=== PATIENT | male | born 1940 | race Caucasian/White ===

== ENCOUNTER 2018-10-05 17:35 | Emergency (ER) | payer MEDICARE, OTHER ==
[~2018-10-05] VITALS: Ht 172.7 cm; Wt 81.6 kg
[~2018-10-05 17:35] MED LIST: ALLO300T28 PO; AMLO10TA4 PO; ASPI81EC98 PO; IBUP-81 PO; PANT40VI PO; SITA100T8 PO; TRAM50TA1 PO; ZOLP5TAB1 PO; [UNRECOGNIZED DRUG - CODE] PO
[2018-10-05 18:23] VITALS: BP 134/68
[2018-10-05] MEDS: ALBUTEROL SULFATE/IPRATROPIU 3 ML SOL IH ONE (19:40)
[2018-10-05] MEDS: KETOROLAC 30 MG/ML VIAL IM ONE (19:47)
[2018-10-05 21:46] VITALS: BP 123/66
== END 2018-10-05 21:20 | disposition home or self-care (01) ==
LOC: MED 17:35
DX: J20.9 Acute bronchitis, unspecified (principal); E11.9 Type 2 diabetes mellitus without complications; K21.9 Gastro-esophageal reflux disease without esophagitis; I10 Essential (primary) hypertension; Z79.82 Long term (current) use of aspirin; Z79.899 Other long term (current) drug therapy
CPT/HCPCS: 36415; 71045; 87804; 94640; 96372; 99284; J1885; J7620; Q0092

== ENCOUNTER 2018-10-23 22:28 | Inpatient (IN) | payer MEDICARE, OTHER ==
[~2018-10-23] VITALS: Ht 172.7 cm; Wt 81.2 kg
[2018-10-23 22:30] VITALS: BP 135/60
--- NOTE | 2018-10-23 22:30 | NUR ---
BIB son. Son states pt suddenly became diaphoretic and talking to self. Met pt in lobby and brought him back immediately to bed 1. Dr Nieto at bedside with w/c. Nickel size blistered red raised lesion above top lip just left of sagital line. Pt is moan in pain. Abd is distended with good bowel sounds. Lungs are clear bilat. Resp even and unlabored.
--- NOTE | 2018-10-23 22:35 | NUR ---
PT TAKEN TO BED 2 Addendum: 10/23/18 at 2243 by SUNDAR PT TAKEN TO BED 1
--- NOTE | 2018-10-23 22:46 | NUR ---
Dr. Nieto evaluating patient at bedside.
--- NOTE | 2018-10-23 22:58 | NUR ---
BLOOD DRAWN BY EDUCATION SUPERVISOR.
--- NOTE | 2018-10-23 23:02 | NUR ---
PORTABLE CXR DONE.
--- NOTE | 2018-10-23 23:08 | NUR ---
ABG DRAWN BY RT.
--- NOTE | 2018-10-23 23:10 | NUR ---
GAUGE 18 IV LINE ESTABLISHED TO THE LEFT FOREARM. NS 1 LITER BOLUS GIVEN ORDERED.
[2018-10-23 23:13] LABS: BASOPHILS # (AUTO) 0.1 K/uL (0.00-0.22); EOSINOPHILS # (AUTO) 0.2 K/uL (0-0.4); EOSINOPHILS % (AUTO) 3.4 % (0.0-4.0); HEMATOCRIT 38.2 % (36-52); HEMOGLOBIN 12.5 g/dL (12.0-18.0); LYMPHOCYTES % (AUTO) 31.6 % (20.5-51.1); MEAN CORPUSCULAR HEMOGLOBIN 28 pg (27-31); MEAN CORPUSCULAR HGB CONC 33 g/dL (33-37); MONOCYTES # (AUTO) 0.4 K/uL (0.8-1.0); MONOCYTES % (AUTO) 5.9 % (1.7-9.3); NEUTROPHILS # (AUTO) 3.6 K/uL (1.8-7.7); NEUTROPHILS % (AUTO) 58.1 % (42.2-75.2); PLATELET COUNT (AUTO) 285 K/uL (140-450); RED CELL DISTRIBUTION WIDTH 16.2 % (11.6-13.7); WHITE BLOOD COUNT (AUTO) 6.2 K/uL (4.8-10.8)
--- NOTE | 2018-10-23 23:14 | NUR ---
[id number].
--- NOTE | 2018-10-23 23:18 | NUR ---
12 LEAD EKG DONE.
[2018-10-23 23:23] LABS: CARBON DIOXIDE 21.5 mmol/L (21-32); CHLORIDE 107 mmol/L (98-107); CREATININE 1.4 mg/dL (0.7-1.3); GLUCOSE 183 mg/dL (74-106); POTASSIUM 3.5 mmol/L (3.5-5.1); SODIUM SERUM 139 mmol/L (136-145); UREA NITROGEN, BLOOD 18 mg/dL (7-18)
[2018-10-23 23:27] LABS: PROTHROMBIN TIME 10.1 secs (10.8-13.4)
[2018-10-23 23:29] LABS: ALBUMIN 3.5 g/dL (3.4-5.0); ASPARTATE AMINOTRANSFERASE 17 U/L (15-37); TOTAL BILIRUBIN 0.3 mg/dL (0.0-1.0)
[2018-10-23] MEDS ORDERED: NACL 0.9% 1,500 ML IV ONE (23:50)
[2018-10-24] MEDS ORDERED: PIPERACILLIN/TAZOBACTAM 3.375 GM in DEXTROSE 5% 50 ML IV ONE ×2
[2018-10-24] MEDS ORDERED: CLINDAMYCIN 900 MG in DEXTROSE 5% 100 ML IV ONE (00:05)
--- NOTE | 2018-10-24 00:14 | NUR ---
IN AND OUT CATHETERIZATION,URINE DIPSTICK DONE. RESULT NOTED BY MICAH. URINE SPECIMEN SENT TO THE LAB.
[2018-10-24 00:38] LABS: APPEARANCE,URINE HAZY (CLEAR); BILIRUBIN,URINE NEGATIVE (NEGATIVE); BLOOD, URINE 1+ (NEGATIVE); COLOR,URINE YELLOW (YELLOW); LEUKOCYTE ESTERASE ,URINE 3+ (NEGATIVE); NITRITE, URINE NEGATIVE (NEGATIVE); UGLUCOSE NEGATIVE (NEGATIVE)
[2018-10-24] MEDS ORDERED: CLINDAMYCIN 900 MG/6 ML VIAL IV ONE (00:44)
[2018-10-24] MEDS ORDERED: PIPERACILLIN/TAZOBACTAM 3.375 GM VIAL IV ONE (00:44)
[2018-10-24 00:45] LABS: RBC,URINE 0-5 (RARE) /HPF (0-5); WBC,URINE TOO MANY TO COUNT /HPF (0-5); YEAST,URINE Few /HPF (None Seen)
--- NOTE | 2018-10-24 00:45 | NUR ---
NS 1500 ML BOLUS STARTED. ZOSYN 3.375 GM IVPB ALSO GIVEN ORDERED.
[2018-10-24] MEDS ORDERED: ACETAMINOPHEN 325 MG TAB PO PRN (01:10)
--- NOTE | 2018-10-24 01:20 | NUR ---
CLINDAMYCIN 900 MG IVPB GIVEN ORDERED.
--- NOTE | 2018-10-24 02:24 | NUR ---
ADMITTED TO TELEMETRY UNIT FOR UROSEPSIS UNDER THE SERVICE OF VERBAL AND WRITTEN REPORT GIVEN TO BENSON BUTTS. PT. WENT TO ROOM 124-B. TRANSFER UNEVENTFUL.
--- NOTE | 2018-10-24 02:25 | NUR ---
ADMITTED A 78 Y/O MALE WITH C/C OF ALOC VIA [facility]. TRANSFERRED PATIENT FROM [facility] TO BED WITH 2 PERSON ASSIST.RESPIRATION EVEN AND UNLABORED. PATIENT RECEIVED WITH SOME CONFUSION, AAOX2, AND EXPLAINED PLAN OF CARE THROUGH [employer]. NO PERSONAL BELONGINGS DURING THE ADMISSION.MRSA NASAL SWAB DONE.SKIN INTACT.ADMISSION CARE DONE AND CARRY OUT ORDERS. FALL PRECAUTIONS APPLIED. CALL LIGHT WITHIN REACH. WILL CONTINUE TO MONITOR.
[2018-10-24] MEDS: NACL 0.9% 1,000 ML IV SCH ×5 (02:37→20:27)
[2018-10-24] MEDS ORDERED: cefTRIAXone 1,000 MG VIAL ONE (03:06)
[2018-10-24 04:00] VITALS: BP 136/52
--- NOTE | 2018-10-24 04:00 | NUR ---
V/S TAKEN AND RECORDED. NO PULMONARY DISTRESS NOTED AT THIS TIME. [address] FALL PRECAUTION APPLIED. CALL LIGHT WITHIN REACH. SEEN PATIENT RESTING COMFORTABLY IN BED. WILL CONTINUE TO MONITOR.
--- NOTE | 2018-10-24 05:00 | NUR ---
AM CARE DONE. PATIENT CHANGED AND REPOSITIONED. [address] NO S/S OF DISTRESS NOTED AT THIS TIME. ALL NEEDS ATTENDED. CALL LIGHT WITHIN REACH. WILL CONTINUE TO MONITOR.
--- NOTE | 2018-10-24 06:37 | NUR ---
PATIENT HAS BEEN SCREENED AND CATEGORIZED LOW NUTRITION RISK. PATIENT WILL BE SEEN WITHIN 7 DAYS OF ADMISSION. 10/30/18 ANNALISE PIPER MS, RDN
--- NOTE | 2018-10-24 07:15 | NUR ---
GAVE REPORT TO AM SHIFT RN AT BEDSIDE FOR CONTINUITY OF CARE. PATIENT IN STABLE CONDITION.
--- NOTE | 2018-10-24 07:16 | NUR ---
RECEIVED BEDSIDE REPORT FROM INSTALL AND REPAIR TECHNICIAN NURSE. PATIENT IS ALERT AND ORIENTEDX1. NO SIGNS OF DISTRESS ON RA. SKIN IS INTACT. PATIENT ON BEDREST, WEAKNESS. FALL RISK PROTOCOL IN PLACE. PATIENT IS INCONTINENT. TELE MONITOR IN PLACE. IV ON L FA 18G INFUSING NS AT 100. CLEAN, DRY AND INTACT. BED IN LOW POSITION. CALL LIGHT WITHIN REACH. WILL CONTINUE TO MONITOR
[2018-10-24 08:00] VITALS: BP 116/59
--- NOTE | 2018-10-24 08:30 | NUR ---
PATIENT WAS BEING FED BY GEOSPATIAL INFORMATION SCIENTIST. PATIENT CONTINUES TO COUGH AND CANNOT TOLERATED DIET. DR WALLACE MADE AWARE. HE SAID KEEP PATIENT NPO. GET SWALLOW EVAL AND GET CT SCAN OF ABD AND XRAY TO CHECK FOR ASPIRATION.
[2018-10-24] MEDS ORDERED: AZITHROMYCIN 250 MG TAB PO SCH (09:00)
[2018-10-24] MEDS ORDERED: ALBUTEROL 0.083% 2.5 MG/3 ML NEBU INH PRN (10:10)
[2018-10-24] MEDS: ENOXAPARIN 40 MG/0.4 ML SYR SUBQ SCH (10:37)
--- NOTE | 2018-10-24 10:39 | NUR ---
ADMINISTERED MED. PATIENT TOLERATED WELL. WILL CONTINUE TO MONITOR THE PATIENT
[2018-10-24 12:00] VITALS: BP 160/78
--- NOTE | 2018-10-24 12:00 | NUR ---
FAMILY AT BEDSIDE. PATIENT IN NO DISTRESS, SON TALKING TO DR WALLACE ON THE PHONE PER DR SHEETS REQUEST, WILL CONTINUE TO MONITOR.
[2018-10-24] MEDS: MORPHINE SULFATE 2 MG/ML SYR IVP PRN ×3 (13:37→22:14)
--- NOTE | 2018-10-24 13:37 | NUR ---
ADMINISTERED PRN PAIN MEDS. PATIENT TOLERATED WELL. WILL CONTINUE TO MONITOR THE PATIENT
[2018-10-24] MEDS: PIPER/TAZO 2.25GM/D5W PREMIX 50 ML IV SCH ×2 (13:38→20:27)
[2018-10-24] MEDS: ONDANSETRON 4 MG/2 ML VIAL IVP PRN (13:38)
--- NOTE | 2018-10-24 15:00 | NUR ---
PATIENT SITTING IN BED. NO SIGNS OF DISTRESS. WILL CONTINUE TO MONITOR THE PATIENT.
[2018-10-24 16:00] VITALS: BP 161/79
--- NOTE | 2018-10-24 17:16 | NUR ---
ADMINISTERED PRN PAIN MEDS. PATIENT TOLERATED WELL. WILL CONTINUE TO MONITOR THE PATIENT
--- NOTE | 2018-10-24 18:30 | NUR ---
PATIENT VERY CONFUSED TRYING TO GET OUT OF BED NOT AWARE HE IS IN A HOSPITAL. REORIENTED PATIENT TO STAY IN BED. BED ALARM ON
--- NOTE | 2018-10-24 19:11 | NUR ---
gave bedside report to retail cashier nurse. patient endorsed in stable condition
--- NOTE | 2018-10-24 19:12 | NUR ---
RECEIVED REPORT FROM DAY SHIFT NURSE PRINCESS-RN AT BEDSIDE. PT RESTING IN BED, AOX1-CONFUSED, ON ROOM AIR WITH LEFT FA #18G RUNNING NS @ 100ML/HR. DISCUSSED PLAN OF CARE- PT IN NEED OF REINFORCEMENT DUE TO CONFUSION. BED IN LOWEST POSITION, BED BREAKS ON, BOTH SIDE RAILS UP AND FALL PRECAUTIONS IN PLACE. BED SIDE TABLE AND CALL LIGHT ARE WITHIN REACH. WILL CONTINUE TO MONITOR.
[2018-10-24 20:00] VITALS: BP 130/75
--- NOTE | 2018-10-24 20:00 | NUR ---
VITAL SIGNS TAKEN AND TOLERATED WELL. NO S/S OF RESPIRATORY DISTRESS OR DISCOMFORT NOTED AT THIS TIME. WILL CONTINUE TO MONITOR.
--- NOTE | 2018-10-24 20:27 | NUR ---
SCHEDULED MEDICATION ZOSYN GIVEN AND TOLERATED WELL. NO S/S OF RESPIRATORY DISTRESS OR DISCOMFORT NOTED AT THIS TIME. WILL CONTINUE TO MONITOR.
--- NOTE | 2018-10-24 22:14 | NUR ---
PT MOANING AND C/O PAIN - ADMINISTERED PAIN MEDICATION. PT TOLERATED WELL. NO S/S OF RESPIRATORY DISTRESS OR DISCOMFORT NOTED AT THIS TIME. WILL CONTINUE TO MONITOR.
[2018-10-25] VITALS: BP 163/85
--- NOTE | 2018-10-25 | NUR ---
VITAL SIGNS TAKEN AND TOLERATED WELL. NO S/S OF RESPIRATORY DISTRESS OR DISCOMFORT NOTED AT THIS TIME. WILL CONTINUE TO MONITOR.
--- NOTE | 2018-10-25 00:10 | NUR ---
SPOKE WITH DR. SALLY PFEIFFER ABOUT PT HISTORY OF DM AND NO ORDERS FOR GLUCOSE CHECKS. ORDERS GIVEN AND BLOOD GLUCOSE 100- NO INSULIN COVERAGE NEEDED. NO S/S OF RESPIRATORY DISTRESS OR DISCOMFORT NOTED AT THIS TIME. WILL CONTINUE TO MONITOR.
[2018-10-25] MEDS ORDERED: DEXTROSE 50% 50 ML SYR IVP PRN (01:20)
[2018-10-25] MEDS ORDERED: INSULIN LISPRO SLIDING SCALE 100 UNITS/ML VIAL SUBQ PRN (01:20)
[2018-10-25] MEDS: MORPHINE SULFATE 2 MG/ML SYR IVP PRN ×3 (01:37→10:28)
--- NOTE | 2018-10-25 01:37 | NUR ---
PT C/O PAIN MOANING- MEDICATED WITH MORPHINE 2MG AND TOLERATED WELL. NO S/S OF RESPIRATORY DISTRESS OR DISCOMFORT NOTED AT THIS TIME. WILL CONTINUE TO MONITOR.
[2018-10-25] MEDS: NACL 0.9% 1,000 ML IV SCH ×2 (01:44→19:43)
--- NOTE | 2018-10-25 01:44 | NUR ---
NEW IV BAG HUNG AND INFUSING NS 0.9% @ 100ML/HR. PT TOLERATED WELL. NO S/S OF RESPIRATORY DISTRESS OR DISCOMFORT NOTED AT THIS TIME. WILL CONTINUE TO MONITOR.
[2018-10-25 04:00] VITALS: BP 148/68
--- NOTE | 2018-10-25 04:00 | NUR ---
VITAL SIGNS TAKEN AND TOLERATED WELL. NO S/S OF RESPIRATORY DISTRESS OR DISCOMFORT NOTED AT THIS TIME. WILL CONTINUE TO MONITOR.
[2018-10-25] MEDS: PIPER/TAZO 2.25GM/D5W PREMIX 50 ML IV SCH ×3 (04:30→20:55)
--- NOTE | 2018-10-25 04:30 | NUR ---
SCHEDULED MEDICATION ZOSYN GIVEN AND TOLERATED WELL. NO S/S OF RESPIRATORY DISTRESS OR DISCOMFORT NOTED AT THIS TIME. WILL CONTINUE TO MONITOR.
--- NOTE | 2018-10-25 06:00 | NUR ---
BLOOD GLUCOSE 98- NO INSULIN COVERAGE NEEDED. NO S/S OF RESPIRATORY DISTRESS OR DISCOMFORT NOTED AT THIS TIME. WILL CONTINUE TO MONITOR.
[2018-10-25] MEDS: BLOOD GLUCOSE MONITORING 1 DEV DEV FS SCH ×4 (06:31→20:55)
--- NOTE | 2018-10-25 06:35 | NUR ---
PT C/O PAIN AND MEDICATED WITH MORPHINE 2MG. PT TOLERATED WELL. NO S/S OF RESPIRATORY DISTRESS OR DISCOMFORT NOTED AT THIS TIME. WILL CONTINUE TO MONITOR.
[2018-10-25] MEDS ORDERED: MORPHINE SULFATE 4 MG/ML SYR ONE (06:41)
--- NOTE | 2018-10-25 07:14 | NUR ---
ENDORSED PT CARE TO DAY SHIFT NURSE JAYNE FOR CONTINUITY OF CARE.
--- NOTE | 2018-10-25 07:15 | NUR ---
RECEIVED BEDSIDE REPORT FROM THERAPEUTIC CASE MANAGER NURSE. PATIENT AAOX2. PATIENT ON ROOM AIR, WITH NO DISTRESS NOTED. SKIN INTACT. PATIENT AMBULATES WITH WALKER STATED BY SON. PATIENT WITH URINAL AT BEDSIDE. IV ON LFA 18 G INFUSING NS AT 100. IV CLEAN DRY AND INTACT. FALL RISK PROTOCOL IN PLACE. BED IN LOW POSITION, CALL LIGHT WITHIN REACH. WILL CONTINUE TO MONITOR.
[2018-10-25 08:00] VITALS: BP 137/68
--- NOTE | 2018-10-25 08:08 | NUR ---
PATIENT HAS BEEN RE-SCREENED AND RE-CATEGORIZED HIGH NUTRITIONAL RISK DUE TO SEPSIS. PT WILL BE SEEN WITHIN 1-2 DAYS FROM TODAY. 10/25/18-10/26/[address]
[2018-10-25 08:17] LABS: BASOPHILS # (AUTO) 0.1 K/uL (0.00-0.22); BASOPHILS % (AUTO) 0.9 % (0.0-2.0); EOSINOPHILS # (AUTO) 0.3 K/uL (0-0.4); EOSINOPHILS % (AUTO) 3.7 % (0.0-4.0); HEMATOCRIT 37.2 % (36-52); LYMPHOCYTES # (AUTO) 2.1 K/uL (2.0-11.5); LYMPHOCYTES % (AUTO) 25.3 % (20.5-51.1); MEAN CORPUSCULAR HEMOGLOBIN 28 pg (27-31); MEAN CORPUSCULAR HGB CONC 32 g/dL (33-37); MEAN CORPUSCULAR VOLUME 85.5 fL (80-94); MONOCYTES # (AUTO) 0.6 K/uL (0.8-1.0); NEUTROPHILS # (AUTO) 5.2 K/uL (1.8-7.7); NEUTROPHILS % (AUTO) 63.1 % (42.2-75.2); PLATELET COUNT (AUTO) 265 K/uL (140-450); RED BLOOD CELL COUNT(AUTO) 4.35 MIL/uL (4.20-6.10); RED CELL DISTRIBUTION WIDTH 16.4 % (11.6-13.7); WHITE BLOOD COUNT (AUTO) 8.2 K/uL (4.8-10.8)
[2018-10-25 08:42] LABS: ALBUMIN 3.1 g/dL (3.4-5.0); ANION GAP 8.8 (8-16); ASPARTATE AMINOTRANSFERASE 22 U/L (15-37); CARBON DIOXIDE 26.9 mmol/L (21-32); CHLORIDE 110 mmol/L (98-107); CREATININE 0.9 mg/dL (0.7-1.3); GLUCOSE 105 mg/dL (74-106); MAGNESIUM 1.7 mg/dL (1.8-2.4); PHOSPHORUS 3.1 mg/dL (2.5-4.9); POTASSIUM 3.7 mmol/L (3.5-5.1); SODIUM SERUM 142 mmol/L (136-145); TOTAL BILIRUBIN 0.6 mg/dL (0.0-1.0); UREA NITROGEN, BLOOD 10 mg/dL (7-18)
[2018-10-25] MEDS: PANTOPRAZOLE 40 MG INJ VIAL IVP SCH (10:28)
[2018-10-25] MEDS: ENOXAPARIN 40 MG/0.4 ML SYR SUBQ SCH (10:32)
[2018-10-25] MEDS: AZITHROMYCIN 500 MG in DEXTROSE 5% 250 ML IV SCH (10:33)
[2018-10-25] MEDS: ONDANSETRON 4 MG/2 ML VIAL IVP PRN (10:57)
--- NOTE | 2018-10-25 11:00 | NUR ---
FAMILY AT BEDSIDE. ANSWERED ALL QUESTIONS AND CONCERNS. PATIENT ON ROOM AIR, NO DISTRESS NOTED. WILL CONTINUE TO MONITOR.
[2018-10-25 12:00] VITALS: BP 145/69
--- NOTE | 2018-10-25 12:32 | NUR ---
10/25/18 RD INITIAL ASSESSMENT COMPLETED PLEASE REFER TO NUTRITION ASSESSMENT UNDER CARE ACTIVITY FOR ESTIMATED NUTRITIONAL NEEDS. 1. CONTINUE NPO DIET UNTIL MEDICALLY APPROPRIATE TO BEGIN NUTRITION 2. WHEN/IF PATIENT STABLE TO BEGIN NUTRITION, RECOMMEND ADVANCE DIET TO 60 GM CCHO, [address] TO FOLLOW UP ON ADEQUATE PO INTAKE 4. RD TO FOLLOW-UP 3-5 DAYS, MODERATE RISK [place] NATION, RD
--- NOTE | 2018-10-25 13:03 | NUR ---
S.T. BEDSIDE SWALLOW EVAL COMPLETED See report for details. Pt presents with mod oropharyngeal dysphagia c/b labial leakage of liquids, impaired mastication of solids. Pt did not cough, however after swallows. He has a persistent wet voice that was present prior to initiation of p.o. trials and consistent throughout. Pt is impulsive and drinks large amounts at one time. Recommend: 1) Advance to mechanical soft ground diet, thin liquids in small, controlled sips. 2) P.O. meds as tolerated. 3) Nursing supervision during meal times for pacing and reminders not to eat/drink large amounts at once. 4). S.T. to f/u x 1 to ensure tolerance of recommended diet textures. D/W bedside RN Jodi and pt results/recommendations. Time [id number]
--- NOTE | 2018-10-25 15:00 | NUR ---
SON AT BEDSIDE. SON ASKED HOW THE SPEECH EVAL WENT. ANSWERED ALL HIS QUESTIONS AND CONCERNS.
[2018-10-25 16:00] VITALS: BP 129/69
[2018-10-25] MEDS ORDERED: MUPIROCIN CA NASAL 2% 1GM TUBE NS SCH (18:00)
[2018-10-25] MEDS ORDERED: CHLORHEXADINE GLUC 2% CLOTH TP SCH (18:00)
--- NOTE | 2018-10-25 18:00 | NUR ---
SUPERVISED PATIENT EATING DINNER. PATIENT TOLERATED WELL. BROUGHT BEDSIDE COMMODE TO ROOM. PATIENT STATED HE WAS GOING TO HAVE A BOWEL MOVEMENT.
--- NOTE | 2018-10-25 19:10 | NUR ---
GAVE BEDSIDE REPORT TO MARRIAGE COUNSELOR NURSE. PATIENT ENDORSED IN STABLE CONDITION.
--- NOTE | 2018-10-25 19:11 | NUR ---
RECEIVED BEDSIDE REPORT FROM DAY SHIFT RN. PT ON ROOM AIR. NO S/S OF DISTRESS. SPEAKS SOME HEBREW BUT MOSTLY KINYARWANDA. IV ON LFA 18 G IVF INFUSING PER ORDERS. SKIN IS INTACT. PT ON CONTACT ISOLATION POSITIVE FOR MRSA. FALL PROTOCOL IS IN PLACE. PLAN OF CARE WAS DISCUSSED WITH PATIENT. CALL LIGHT WITHIN REACH.
[2018-10-25 19:57] VITALS: BP 138/69
--- NOTE | 2018-10-25 20:55 | NUR ---
VITAL SIGNS ARE WITHIN NORMAL LIMITS. DUE MEDICATIONS ADMINISTERED. PT TOLERATED WELL. WILL CONTINUE TO MONITOR.
--- NOTE | 2018-10-26 | NUR ---
VITAL SIGNS ARE WITHIN NORMAL LIMITS. NO S/S OF DISTRESS. CALL LIGHT WITHIN REACH.
[2018-10-26 00:07] VITALS: BP 144/80
--- NOTE | 2018-10-26 02:50 | NUR ---
PT SLEEPING COMFORTABLY. NO S/S OF DISTRESS.
[2018-10-26 04:00] VITALS: BP 147/96
--- NOTE | 2018-10-26 04:00 | NUR ---
VITAL SIGNS ARE WITHIN NORMAL LIMITS. ALL NEEDS MET AT THIS TIME. CALL LIGHT WITHIN REACH.
[2018-10-26] MEDS: BLOOD GLUCOSE MONITORING 1 DEV DEV FS SCH (05:10)
[2018-10-26] MEDS: NACL 0.9% 1,000 ML IV SCH (05:12)
[2018-10-26] MEDS: PIPER/TAZO 2.25GM/D5W PREMIX 50 ML IV SCH (05:12)
--- NOTE | 2018-10-26 05:12 | NUR ---
NEW BAG OF ZOSYN NOW INFUSING PER ORDERS. PT WAS CLEANED AND REPOSITION FOR COMFORT. ALL NEEDS MET AT THIS TIME. WILL CONTINUE TO MONITOR.
--- NOTE | 2018-10-26 07:21 | NUR ---
ENDORSED TO DAY SHIFT RN. PT IS IN STABLE CONDITION.
[2018-10-26 08:00] VITALS: BP 153/74
--- NOTE | 2018-10-26 08:00 | NUR ---
PATIENT WAS AWAKE, ALERT, EATING BREAKFAST COMFORTABLY. RESPIRATION EVEN, UNLABOR ON ROOM AIR. SKIN DRY AND WARM. IV PATENT AND INTACT. DENIED PAIN, SOB AT THIS TIME. PLAN OF CARE WAS DISCUSSED WITH PATIENT. BED AT LOW POSITION, SIDE RAILS UP. CALL LIGHT WITHIN REACH
[2018-10-26 08:15] LABS: BASOPHILS % (AUTO) 0.6 % (0.0-2.0); EOSINOPHILS # (AUTO) 0.2 K/uL (0-0.4); EOSINOPHILS % (AUTO) 3.6 % (0.0-4.0); HEMATOCRIT 36.7 % (36-52); HEMOGLOBIN 11.8 g/dL (12.0-18.0); LYMPHOCYTES # (AUTO) 1.7 K/uL (2.0-11.5); LYMPHOCYTES % (AUTO) 27.5 % (20.5-51.1); MEAN CORPUSCULAR HEMOGLOBIN 27 pg (27-31); MEAN CORPUSCULAR HGB CONC 32 g/dL (33-37); MEAN CORPUSCULAR VOLUME 85.3 fL (80-94); MONOCYTES # (AUTO) 0.5 K/uL (0.8-1.0); MONOCYTES % (AUTO) 8.1 % (1.7-9.3); NEUTROPHILS # (AUTO) 3.8 K/uL (1.8-7.7); NEUTROPHILS % (AUTO) 60.2 % (42.2-75.2); PLATELET COUNT (AUTO) 218 K/uL (140-450); RED BLOOD CELL COUNT(AUTO) 4.31 MIL/uL (4.20-6.10); RED CELL DISTRIBUTION WIDTH 16.2 % (11.6-13.7); WHITE BLOOD COUNT (AUTO) 6.3 K/uL (4.8-10.8)
[2018-10-26 08:45] LABS: ALBUMIN 3.1 g/dL (3.4-5.0); ANION GAP 13.7 (8-16); ASPARTATE AMINOTRANSFERASE 18 U/L (15-37); CHLORIDE 104 mmol/L (98-107); CREATININE 0.8 mg/dL (0.7-1.3); GLUCOSE 101 mg/dL (74-106); POTASSIUM 3.7 mmol/L (3.5-5.1); SODIUM SERUM 139 mmol/L (136-145); TOTAL BILIRUBIN 0.5 mg/dL (0.0-1.0); UREA NITROGEN, BLOOD 7 mg/dL (7-18)
[2018-10-26] MEDS ORDERED: LEVO500T2 PO (08:56)
[2018-10-26] MEDS: AZITHROMYCIN 500 MG in DEXTROSE 5% 250 ML IV SCH (09:29)
[2018-10-26] MEDS: PANTOPRAZOLE 40 MG INJ VIAL IVP SCH (09:29)
[2018-10-26] MEDS: ENOXAPARIN 40 MG/0.4 ML SYR SUBQ SCH (09:30)
--- NOTE | 2018-10-26 09:56 | NUR ---
CM NOTE PER CARROLL OF [facility] PH# [phone], PATIENT IS SCHEDULED FOR OUTPATIENT FOLLOW UP APPOINTMENT ON NOVEMBER 03, 2018 3:00 PM AT THE CLINIC AT [id number] [place] [address]. I SPOKE WITH PATIENT TO INFORM HIM OF HIS OUTPATIENT FOLLOW UP APPOINTMENT AND HE REQUESTED ME TO CALL HIS SON GUILHERME GARDNER JR TO GIVE HIM THE DETAILS REGARDING THE APPOINTMENT BECAUSE HE IS THE ONE BRINGING HIM TO HIS APPOINTMENTS. SPOKE WITH PATIENT'S SON GUILHERME GARDNER JR PH# [phone] AND GAVE HIM THE INFORMATION REGARDING THE PATIENT'S OUTPATIENT FOLLOW UP WITH PCP. NOTIFIED HILDA BUTTS, PATIENT'S NURSE, TO GIVE INSTRUCTION UPON DISCHARGE.
--- NOTE | 2018-10-26 10:00 | NUR ---
PATIENT WAS AWAKE, WATCHING TV COMFORTABLY. RESPIRATION EVEN, UNLABOR ON ROOM AIR. NO DISTRESS NOTED AT THIS TIME
--- NOTE | 2018-10-26 11:15 | NUR ---
DISCHARGE INSTRUCTION AND PRESCRIPTION WAS GIVEN AND EXPLAINED TO PATIENT'S SON, ARNOLD. SON VERBALIZED UNDERSTANDING. IV WAS REMOVED, CATHETER INTACT, NO ACTIVE BLEEDING SEEN. TEST PREPARATION TUTOR AND ID BAND WERE REMOVED. ALL BELONGINGS WERE TAKEN WITH PATIENT AND FAMILY. PATIENT WAS ESCORTED OUT IN WHEELCHAIR BY STAFF. PATIENT IS STABLE AT THIS TIME
== END 2018-10-26 11:15 | disposition home or self-care (01) | DRG 463 ==
LOC: MED 22:28 → MTU 10-24 01:16
PROVIDERS: ADMIT Internal Medicine; ATTEND Internal Medicine
DX: N39.0 Urinary tract infection, site not specified (principal); N17.0 Acute kidney failure with tubular necrosis; G93.49 Other encephalopathy; J18.9 Pneumonia, unspecified organism; E11.9 Type 2 diabetes mellitus without complications; E86.0 Dehydration; I10 Essential (primary) hypertension; M10.9 Gout, unspecified; M19.90 Unspecified osteoarthritis, unspecified site; K21.9 Gastro-esophageal reflux disease without esophagitis; Z96.641 Presence of right artificial hip joint; F17.210 Nicotine dependence, cigarettes, uncomplicated; N40.0 Benign prostatic hyperplasia without lower urinary tract symptoms; Z79.82 Long term (current) use of aspirin; Z79.899 Other long term (current) drug therapy; Z79.84 Long term (current) use of oral hypoglycemic drugs
CPT/HCPCS: 36415; 36600; 71045; 80053; 81001; 82803; 82948; 83605; 83735; 83880; 84100; 84484; 85025; 85610; 85730; 87040; 87081; 87086; 92610; 93005; 96365; 96367; 97116; 97530; 99285; C1758; C9113; J0456; J0696; J1650; J1815; J2270; J2405; J2543; J3490; J7030; J7060; Q0092

== ENCOUNTER 2019-07-20 16:51 | Emergency (ER) | payer MEDICARE, OTHER ==
[~2019-07-20] VITALS: Ht 172.7 cm; Wt 83.0 kg
[~2019-07-20 16:51] MED LIST changes: +LEVO500T2 PO; -TRAM50TA1 PO
[2019-07-20 16:55] VITALS: BP 136/70
[2019-07-20] MEDS ORDERED: KETOROLAC 60 MG/2 ML VIAL IM ONE (17:35)
[2019-07-20 17:46] VITALS: BP 136/70
== END 2019-07-20 17:46 | disposition home or self-care (01) ==
LOC: MED 16:51
DX: N39.0 Urinary tract infection, site not specified (principal); K21.9 Gastro-esophageal reflux disease without esophagitis; E11.9 Type 2 diabetes mellitus without complications; I10 Essential (primary) hypertension; M06.9 Rheumatoid arthritis, unspecified; F17.210 Nicotine dependence, cigarettes, uncomplicated; M10.9 Gout, unspecified; Z98.890 Other specified postprocedural states; Z79.1 Long term (current) use of non-steroidal anti-inflammatories (NSAID)
CPT/HCPCS: 81002; 87086; 96372; 99283; J1885

== ENCOUNTER 2019-07-26 14:19 | Emergency (ER) | payer MEDICARE, OTHER ==
[~2019-07-26] VITALS: Ht 172.7 cm; Wt 83.9 kg
[2019-07-26 14:43] VITALS: BP 117/57
--- NOTE | 2019-07-26 14:43 | NUR ---
PT ARRVIED TO ED C/O BODY PAIN X 2 WEEKS. PT STATES HE BEEN HAVING DYSURIA, FREQUENCY X 2WEEKS. DENIES ANY N,V,D, OR FEVER. PT CAME INTO ED COUPLE DAYS AGO FOR UTI AND SAYS THE PAIN GOT WORSE. NKA.
[2019-07-26] MEDS ORDERED: MORPHINE SULFATE 4 MG/ML SYR IM ONE (15:40)
[2019-07-26 15:49] VITALS: BP 117/57
--- NOTE | 2019-07-26 15:49 | NUR ---
Patient discharged with v/s stable. Written and verbal after care instructions given and explained. Patient alert, oriented and verbalized understanding of instructions. Ambulatory with steady gait. All questions addressed prior to discharge. ID band removed. Patient advised to follow up with PMD. Rx of NORCO, FLUCONAZOLE given. Patient educated on indication of medication including possible reaction and side effects. Opportunity to ask questions provided and answered.
== END 2019-07-26 15:49 | disposition home or self-care (01) ==
LOC: MED 14:19
DX: N39.0 Urinary tract infection, site not specified (principal); B48.8 Other specified mycoses; E11.9 Type 2 diabetes mellitus without complications; K21.9 Gastro-esophageal reflux disease without esophagitis; I10 Essential (primary) hypertension; F17.200 Nicotine dependence, unspecified, uncomplicated; Z98.890 Other specified postprocedural states; Z79.82 Long term (current) use of aspirin; Z79.899 Other long term (current) drug therapy
CPT/HCPCS: 81002; 87086; 96372; 99283; J2270

== ENCOUNTER 2019-09-13 13:14 | Inpatient (IN) | payer MEDICARE, OTHER ==
[~2019-09-13] VITALS: Ht 172.7 cm; Wt 83.5 kg
[2019-09-13 13:37] VITALS: BP 133/70
--- NOTE | 2019-09-13 13:48 | NUR ---
79 Y/O MALE PRESENTING WITH C/C OF GENERALIZED WEAKNESS XTODAY. PER SON PT WOKE UP WEAK AND HAVING PAIN ALL OVER BODY. PER SON "HE'S NEVER BEEN LIKE THIS BEFORE". PT NKA. MEDICAL HX OF HTN, DM. RX OF HTN, DM, AND RATIDINE FOR STOMACH. DENIES N/V/D. SIDE RAIL X1. SON AT BEDSIDE.
[2019-09-13 14:28] LABS: BASOPHILS % (AUTO) 0.4 % (0.0-2.0); EOSINOPHILS # (AUTO) 0.1 K/uL (0-0.4); EOSINOPHILS % (AUTO) 0.6 % (0.0-4.0); LYMPHOCYTES # (AUTO) 1.3 K/uL (2.0-11.5); LYMPHOCYTES % (AUTO) 13.5 % (20.5-51.1); MEAN CORPUSCULAR HEMOGLOBIN 31 pg (27-31); MEAN CORPUSCULAR HGB CONC 34 g/dL (33-37); MEAN CORPUSCULAR VOLUME 90.4 fL (80-94); MONOCYTES # (AUTO) 0.8 K/uL (0.8-1.0); MONOCYTES % (AUTO) 7.7 % (1.7-9.3); NEUTROPHILS # (AUTO) 7.7 K/uL (1.8-7.7); NEUTROPHILS % (AUTO) 77.8 % (42.2-75.2); PLATELET COUNT (AUTO) 271 K/uL (140-450); RED BLOOD CELL COUNT(AUTO) 4.54 MIL/uL (4.20-6.10); RED CELL DISTRIBUTION WIDTH 13.9 % (11.6-13.7); WHITE BLOOD COUNT (AUTO) 9.9 K/uL (4.8-10.8)
--- NOTE | 2019-09-13 14:50 | NUR ---
Dr. Estrada is evaluating the patient at bedside.
[2019-09-13] MEDS ORDERED: NACL 0.9% 1,000 ML IV ONE (14:55)
[2019-09-13] MEDS ORDERED: KETOROLAC 15 MG/ML VIAL IVP ONE (14:55)
[2019-09-13 15:02] LABS: ANION GAP 16.1 (8-16); CARBON DIOXIDE 25.3 mmol/L (21-32); CHLORIDE 107 mmol/L (98-107); CREATININE 0.9 mg/dL (0.7-1.3); GLUCOSE 154 mg/dL (74-106); POTASSIUM 3.4 mmol/L (3.5-5.1); SODIUM SERUM 145 mmol/L (136-145); UREA NITROGEN, BLOOD 20 mg/dL (7-18)
[2019-09-13 15:09] LABS: ALBUMIN 3.6 g/dL (3.4-5.0); ASPARTATE AMINOTRANSFERASE 47 U/L (15-37); TOTAL BILIRUBIN 0.5 mg/dL (0.0-1.0)
--- NOTE | 2019-09-13 15:10 | NUR ---
PATIENT RESTING IN BED; FAMILY AT BEDSIDE
[2019-09-13 15:58] LABS: APPEARANCE,URINE CLOUDY (CLEAR); BILIRUBIN,URINE NEGATIVE (NEGATIVE); BLOOD, URINE 3+ (NEGATIVE); COLOR,URINE YELLOW (YELLOW); LEUKOCYTE ESTERASE ,URINE 2+ (NEGATIVE); NITRITE, URINE NEGATIVE (NEGATIVE); PH,URINE 7.5 (5.0-9.0); UGLUCOSE NEGATIVE (NEGATIVE)
[2019-09-13 16:27] LABS: RBC,URINE 0-5 /HPF (0-5); WBC,URINE TOO MANY TO COUNT /HPF (0-5); YEAST,URINE Few /HPF (None Seen)
--- NOTE | 2019-09-13 17:09 | NUR ---
pt resting in bed ; family at bedside
[2019-09-13] MEDS ORDERED: cefTRIAXone 1,000 MG VIAL ONE (17:12)
[2019-09-13 17:50] VITALS: BP 158/86
--- NOTE | 2019-09-13 17:50 | NUR ---
RECEIVED REPORT FROM BECKIE DIEZ. PT ARRIVED TO MS UNIT, NEW ADMIT FROM ED VIA GURNEY. PT IS AWAKE AND ALERT X1, VERBALLY RESPONSIVE. PT WITH IV LEFT AC PATENT AND INTACT WITH IV ANTIBIOTIC ROCEPHIN INFUSING @ 100ML/HR. NO REACTION NOTED. PT BED IN LOW POSITION. BED ALARM ON. CALL LIGHT WITHIN REACH. WILL ENDORSE TO NIGHT NURSE FOR CONTINUITY OF CARE.
--- NOTE | 2019-09-13 17:50 | NUR ---
Patient will be admitted to care of dr barnhart. Admited to [facility]. Will go to [id number]. Belongings list completed. Report to [facility] rn.
--- NOTE | 2019-09-13 18:54 | NUR ---
WILL ENDORSE TO NIGHT NURSE FOR CONTINUITY OF CARE. PT IS IN STABLE CONDITION.
--- NOTE | 2019-09-13 19:30 | NUR ---
RECEIVED BEDSIDE REPORT FROM DAY RN. PT IS AAOX1 SELF. VERY DIFFICULT TO UNDERSTAND SPEECH. PT MUMBLES. PT IS ON ROOM AIR. RESPIRATIONS ARE EQUAL AND UNLABORED. LUNG SOUNDS ARE CLEAR. PER RN SKIN IS INTACT. PT IS INCONTINENT. BEDREST. USES WHEELCHAIR AT HOME. LIVES WITH SON. IV ON LAC 20G SL. C/C GEN WEAKNESS. DX UTI. PER RN MRSA SWAB WAS OBTAINED. POC DISCUSSED WITH PT. FALL PRECAUTIONS ARE IN PLACE. WILL ROUND FREQUENTLY.
[2019-09-13] MEDS ORDERED: ONDANSETRON 4 MG/2 ML VIAL IVP PRN (19:55)
[2019-09-13 20:00] VITALS: BP 153/55
--- NOTE | 2019-09-13 20:00 | NUR ---
SPOKE WITH PT'S SON GUILHERME HOPKINS REGARDING ADMISSION QUESTIONS. PER PT C/C WEAKNESS SINCE THIS AM. AND BROUGHT IN OTHERWISE NO OTHER COMPLAINS. DENIES RECENT TRAVELS OR HOSPITALIZATIONS. POC DISCUSSED WITH SON STATES HE WILL COME IN TOMORROW AFTER 1200
[2019-09-13] MEDS: NACL 0.45% 1,000 ML IV SCH (20:16)
--- NOTE | 2019-09-13 22:40 | NUR ---
PATIENT WAS CLEANED AND REPOSITION FOR COMFORT. ALL NEEDS MET AT THIS TIME. CALL LIGHT IS WITHIN REACH.
[2019-09-14] VITALS: BP 150/77
--- NOTE | 2019-09-14 | NUR ---
PATIENT VSS. DENIES PAIN. ALL NEEDS MET AT THIS TIME. CALL LIGHT IS WITHIN REACH.
--- NOTE | 2019-09-14 02:00 | NUR ---
PATIENT IS SLEEPING COMFORTABLY IN BED. CHEST RISE AND FALL. ALL NEEDS MET AT THIS TIME. CALL LIGHT IS WITHIN REACH.
[2019-09-14] MEDS ORDERED: ACETAMINOPHEN 325 MG TAB PO PRN (03:20)
[2019-09-14 04:00] VITALS: BP 147/81
--- NOTE | 2019-09-14 04:00 | NUR ---
VITAL SIGNS ARE WITHIN NORMAL LIMITS. DENIES PAIN. ALL NEEDS MET AT THIS TIME. CALL LIGHT IS WITHIN REACH. WILL CONTINUE TO MONITOR.
--- NOTE | 2019-09-14 06:05 | NUR ---
PATIENT IS RESTING COMFORTABLY IN BED. NO S/S OF DISTRESS. SAFETY MEASURES ARE IN PLACE. CALL LIGHT IS WITHIN REACH. WILL CONTINUE TO MONITOR.
[2019-09-14 06:50] LABS: BASOPHILS % (AUTO) 0.5 % (0.0-2.0); EOSINOPHILS % (AUTO) 0.4 % (0.0-4.0); HEMATOCRIT 38.8 % (36-52); HEMOGLOBIN 12.9 g/dL (12.0-18.0); LYMPHOCYTES # (AUTO) 1.8 K/uL (2.0-11.5); LYMPHOCYTES % (AUTO) 22.1 % (20.5-51.1); MEAN CORPUSCULAR HEMOGLOBIN 30 pg (27-31); MEAN CORPUSCULAR HGB CONC 33 g/dL (33-37); MEAN CORPUSCULAR VOLUME 90.7 fL (80-94); MONOCYTES # (AUTO) 0.7 K/uL (0.8-1.0); MONOCYTES % (AUTO) 9.3 % (1.7-9.3); NEUTROPHILS # (AUTO) 5.5 K/uL (1.8-7.7); NEUTROPHILS % (AUTO) 67.7 % (42.2-75.2); PLATELET COUNT (AUTO) 284 K/uL (140-450); RED BLOOD CELL COUNT(AUTO) 4.28 MIL/uL (4.20-6.10); WHITE BLOOD COUNT (AUTO) 8.1 K/uL (4.8-10.8)
[2019-09-14 07:09] LABS: ALBUMIN 3.2 g/dL (3.4-5.0); ANION GAP 16.8 (8-16); ASPARTATE AMINOTRANSFERASE 44 U/L (15-37); CARBON DIOXIDE 22.8 mmol/L (21-32); CHLORIDE 107 mmol/L (98-107); CREATININE 0.8 mg/dL (0.7-1.3); GLUCOSE 113 mg/dL (74-106); POTASSIUM 3.6 mmol/L (3.5-5.1); SODIUM SERUM 143 mmol/L (136-145); TOTAL BILIRUBIN 0.5 mg/dL (0.0-1.0); UREA NITROGEN, BLOOD 16 mg/dL (7-18)
--- NOTE | 2019-09-14 07:13 | NUR ---
GAVE BEDSIDE REPORT TO DAY RN. PT ENDORSED IN STABLE CONDITION.
--- NOTE | 2019-09-14 07:15 | NUR ---
RECEIVED REPORT FROM NIGHT NURSE. PT IN BED WITH EYES CLOSED, AROUSABLE TO SPEECH, AAOX1. RESPIRATIONS EVEN AND UNLABORED ON ROOM AIR, CLEAR BREATH SOUNDS. NO DISTRESS NOTED. SKIN INTACT. IV IN PLACE PATENT AND ASYMPTOMATIC INFUSING PER ORDER IN L AC 20G. SAFETY MEASURES IN PLACE. CALL LIGHT WITHIN REACH. BED IN LOW POSITION. WILL CONTINUE TO MONITOR.
[2019-09-14 08:00] VITALS: BP 149/73
--- NOTE | 2019-09-14 08:40 | NUR ---
PATIENT HAS BEEN SCREENED AND CATEGORIZED MODERATE NUTRITION RISK. PATIENT WILL BE SEEN WITHIN 3-5 DAYS OF ADMISSION. 09/16/19 09/18/[address]
--- NOTE | 2019-09-14 09:52 | NUR ---
MEDICATION ADMINISTERED PER ORDER. PT TOLERATED WELL. NO DISTRESS NOTED. WILL CONTINUE TO MONITOR.
[2019-09-14] MEDS: ENOXAPARIN 40 MG/0.4 ML SYR SUBQ SCH (09:53)
--- NOTE | 2019-09-14 11:24 | NUR ---
Automotive Electrician Note: I went to patient's room to conduct assessment, patient was sleeping. I will meet with patient at a later time. I called and spoke with patient's son Tello Gong Jr Nu , he stated he cannot speak at this time, however, he will be coming to hospital around 4pm, I will meet with patient's son Tello when he arrives.
--- NOTE | 2019-09-14 11:48 | NUR ---
VITAL SIGNS TAKEN AT THIS TIME. PT DENIES PAIN. NO DISTRESS NOTED. RESPIRATIONS EVEN AND UNLABORED ON ROOM AIR WITH O2 2L NC. SAFETY MEASURES IN PLACE. WILL CONTINUE TO MONITOR.
[2019-09-14 12:00] VITALS: BP 153/81
--- NOTE | 2019-09-14 14:07 | NUR ---
PT IN BED SLEEPING. NO DISTRESS NOTED. BED IN LOW POSITION. SAFETY MEASURES IN PLACE. CALL LIGHT WITHIN REACH. WILL CONTINUE TO MONITOR.
--- NOTE | 2019-09-14 15:12 | NUR ---
PTS SON IS AT THE BEDSIDE REQUESTING TO TALK TO FISHERIES MANAGEMENT BIOLOGIST. CALLED FISHERIES MANAGEMENT BIOLOGIST AND LEFT A MESSAGE. PT IN BED AWAKE. NO DISTRESS NOTED. SAFETY MEASURES IN PLACE. CALL LIGHT WITHIN REACH. WILL CONTINUE TO MONITOR.
[2019-09-14] MEDS: NACL 0.45% 1,000 ML IV SCH (15:52)
[2019-09-14 16:00] VITALS: BP 145/66
--- NOTE | 2019-09-14 17:15 | NUR ---
PT IN BED, WITH EYES CLOSED AROUSABLE TO SPEECH. DENIES PAIN. NO DISTRESS NOTED. SAFETY MEASURES IN PLACE. CALL LIGHT WITHIN REACH, WILL CONTINUE TO MONITOR.
--- NOTE | 2019-09-14 19:10 | NUR ---
ENDORSED PT TO NIGHT NURSE FOR CONTINUITY OF CARE.
--- NOTE | 2019-09-14 19:30 | NUR ---
RECEIVED BEDSIDE REPORT FROM DAY RN. PT IS AAOX1 SELF. VERY DIFFICULT TO UNDERSTAND SPEECH. PT MUMBLES. PT IS ON ROOM AIR. RESPIRATIONS ARE EQUAL AND UNLABORED. LUNG SOUNDS ARE CLEAR. PER RN SKIN IS INTACT. PT IS INCONTINENT. BEDREST. USES WHEELCHAIR AT HOME. LIVES WITH SON. IV ON LAC 20G INFUSING 1/2 NS @ 50M/H. C/C GEN WEAKNESS. DX UTI. POC DISCUSSED WITH PT. FALL PRECAUTIONS ARE IN PLACE. WILL ROUND FREQUENTLY.
[2019-09-14 20:00] VITALS: BP 147/68
--- NOTE | 2019-09-14 20:53 | NUR ---
VITAL SIGNS ARE WITHIN NORMAL LIMITS. PT IS RESTING COMFORTABLY IN BED WATCHING TV. NO S/S OF DISTRESS. ALL NEEDS MET AT THIS TIME. CALL LIGHT IS WITHIN REACH. WILL CONTINUE TO MONITOR.
--- NOTE | 2019-09-14 21:53 | NUR ---
PATIENT IS SLEEPING COMFORTABLY IN BED. NO S/S OF DISTRESS. CALL LIGHT IS WITHIN REACH. WILL CONTINUE TO MONITOR.
[2019-09-15] VITALS (7 sets, daily range): BP systolic 111–153; BP diastolic 65–83
--- NOTE | 2019-09-15 | NUR ---
VITAL SIGNS ARE WITHIN NORMAL LIMITS. DENIES PAIN. ALL SAFETY MEASURES ARE IN PLACE. WILL CONTINUE TO MONITOR
--- NOTE | 2019-09-15 02:10 | NUR ---
MADE ROUNDS. PATIENT IS SLEEPING COMFORTABLY IN BED WITH EYES CLOSED. CHEST RISE AND FALL. SAFETY MEASURES ARE IN PLACE.
[2019-09-15] MEDS: NACL 0.45% 1,000 ML IV SCH (02:42)
--- NOTE | 2019-09-15 04:00 | NUR ---
VITAL SIGNS ARE WITHIN NORMAL LIMITS. DENIES PAIN. ALL SAFETY MEASURES ARE IN PLACE. CALL LIGHT IS WITHIN REACH
[2019-09-15 07:09] LABS: BASOPHILS % (AUTO) 0.4 % (0.0-2.0); HEMATOCRIT 40.7 % (36-52); HEMOGLOBIN 13.7 g/dL (12.0-18.0); LYMPHOCYTES # (AUTO) 1.5 K/uL (2.0-11.5); LYMPHOCYTES % (AUTO) 13.5 % (20.5-51.1); MEAN CORPUSCULAR HEMOGLOBIN 30 pg (27-31); MEAN CORPUSCULAR HGB CONC 34 g/dL (33-37); MEAN CORPUSCULAR VOLUME 89.7 fL (80-94); MONOCYTES # (AUTO) 1.1 K/uL (0.8-1.0); NEUTROPHILS # (AUTO) 8.7 K/uL (1.8-7.7); NEUTROPHILS % (AUTO) 76.1 % (42.2-75.2); PLATELET COUNT (AUTO) 267 K/uL (140-450); RED BLOOD CELL COUNT(AUTO) 4.53 MIL/uL (4.20-6.10); RED CELL DISTRIBUTION WIDTH 13.9 % (11.6-13.7); WHITE BLOOD COUNT (AUTO) 11.4 K/uL (4.8-10.8)
--- NOTE | 2019-09-15 07:17 | NUR ---
GAVE BEDSIDE REPORT TO DAY RN. PT ENDORSED IN STABLE CONDITION
--- NOTE | 2019-09-15 07:22 | NUR ---
RECEIVED PT FROM NIGHT NURSE. PT IN BED AWAKE AAOX2. MUMBLING INCOMPREHENSIBLE WORDS. NO DISTRESS NOTED. IV IN PLACE PATENT AND ASYMPTOMATIC INFUSING PER ORDER. SKIN INTACT. RESPIRATIONS EVEN AND UNLABORED ON ROOM AIR, CLEAR BREATH SOUNDS. BED IN LOW POSITION. SAFETY MEASURES IN PLACE. CALL LIGHT WITHIN REACH. WILL CONTINUE TO MONITOR.
[2019-09-15 07:37] LABS: ANION GAP 17.3 (8-16); CARBON DIOXIDE 20.3 mmol/L (21-32); CHLORIDE 102 mmol/L (98-107); CREATININE 0.8 mg/dL (0.7-1.3); GLUCOSE 142 mg/dL (74-106); POTASSIUM 3.6 mmol/L (3.5-5.1); SODIUM SERUM 136 mmol/L (136-145); UREA NITROGEN, BLOOD 14 mg/dL (7-18)
[2019-09-15] MEDS: TAMSULOSIN 0.4 MG CAP PO SCH (08:47)
[2019-09-15] MEDS: ENOXAPARIN 40 MG/0.4 ML SYR SUBQ SCH (08:48)
--- NOTE | 2019-09-15 09:45 | NUR ---
MEDICATIONS ADMINISTERED PER ORDER. PT TOLERATED WELL. NO DISTRESS NOTED. WILL CONTINUE TO MONITOR.
[2019-09-15 11:19] LABS: APPEARANCE,URINE CLEAR (CLEAR); BILIRUBIN,URINE NEGATIVE (NEGATIVE); BLOOD, URINE 2+ (NEGATIVE); COLOR,URINE YELLOW (YELLOW); LEUKOCYTE ESTERASE ,URINE NEGATIVE (NEGATIVE); NITRITE, URINE NEGATIVE (NEGATIVE); UGLUCOSE 2+ (NEGATIVE)
[2019-09-15 11:27] LABS: RBC,URINE 0-5 /HPF (0-5); WBC,URINE 16-25 (MOD) /HPF (0-5)
--- NOTE | 2019-09-15 11:48 | NUR ---
VITAL SIGNS TAKEN AT THIS TIME. PT IN STABLE CONDITION. PT DENIES PAIN. SAFETY MEASURES IN PLACE. WILL CONTINUE TO MONITOR.
--- NOTE | 2019-09-15 14:25 | NUR ---
RECEIVED CALL FROM LAB REPORTING PT IS POSITIVE FOR MRSA NARES. PT PLACED ON CONTACT PRECAUTION. WILL CONTINUE TO MONITOR. SAFETY MEASURES IN PLACE.
--- NOTE | 2019-09-15 17:06 | NUR ---
MEDICATIONS ADMINISTERED PER ORDER. PT TOLERATED WELL. NO DISTRESS NOTED. WILL CONTINUE TO MONITOR.
--- NOTE | 2019-09-15 19:28 | NUR ---
REPORT GIVEN TO NIGHT NURSE FOR CONTINUITY OF CARE.
--- NOTE | 2019-09-15 19:30 | NUR ---
RECEIVED PT IN STABLE CONDITION FROM [place] NURSE. AWAKE,ALERT AND BUT WITH PERIODS OF CONFUSION. ON TELE MONITOR-SR/BBB. BEDREST. WITH IVF INFUSING WELL ON THE LT AC G# 20. BED ON LOWEST POSITION. FREQUENT ROUNDS NEEDED. CALL LIGHT PLACED WITHIN REACH. INCONTINENT . ON CONTACT ISOLATION FOR MRSA NARES. WILL CALL MD FOR ORDER. POSITIONED FOR COMFORT. WILL CONTINUE TO MONITOR.
--- NOTE | 2019-09-15 20:35 | NUR ---
DR FERNÁNDEZ NOTIFIED REGARDING PATIENT POSITIVE FOR MRSA NARES AND NEED ORDER.
[2019-09-15] MEDS ORDERED: CHLORHEXADINE GLUC 2% CLOTH TP SCH (21:00)
[2019-09-15] MEDS ORDERED: MUPIROCIN CA NASAL 2% 1GM TUBE NS SCH (21:00)
--- NOTE | 2019-09-15 23:05 | NUR ---
PT STARTED WITH MRSA NARES TREATMENTS WITH BACTROBAN OINTMENT AND CHLORHEXIDINE BATH .
--- NOTE | 2019-09-16 02:00 | NUR ---
POT REPOSITIONED FOR COMFORT. NO C/O ANY DISTRESS NOTED.
--- NOTE | 2019-09-16 04:00 | NUR ---
MADE ROUNDS. VITAL SIGNS STABLE. NO C/O ANY PAIN NOTED.
[2019-09-16 04:10] VITALS: BP 130/62
--- NOTE | 2019-09-16 06:28 | NUR ---
MADE ROUNDS. PT ASLEEP. NO DISCOMFORT NOTED.
[2019-09-16 07:10] LABS: BASOPHILS % (AUTO) 0.3 % (0.0-2.0); EOSINOPHILS % (AUTO) 0.1 % (0.0-4.0); HEMATOCRIT 38.7 % (36-52); HEMOGLOBIN 12.9 g/dL (12.0-18.0); LYMPHOCYTES # (AUTO) 1.6 K/uL (2.0-11.5); LYMPHOCYTES % (AUTO) 15.5 % (20.5-51.1); MEAN CORPUSCULAR HEMOGLOBIN 30 pg (27-31); MEAN CORPUSCULAR HGB CONC 33 g/dL (33-37); MEAN CORPUSCULAR VOLUME 90.6 fL (80-94); MONOCYTES # (AUTO) 1.1 K/uL (0.8-1.0); MONOCYTES % (AUTO) 10.8 % (1.7-9.3); NEUTROPHILS # (AUTO) 7.6 K/uL (1.8-7.7); NEUTROPHILS % (AUTO) 73.3 % (42.2-75.2); PLATELET COUNT (AUTO) 255 K/uL (140-450); RED BLOOD CELL COUNT(AUTO) 4.28 MIL/uL (4.20-6.10); RED CELL DISTRIBUTION WIDTH 13.6 % (11.6-13.7); WHITE BLOOD COUNT (AUTO) 10.4 K/uL (4.8-10.8)
[2019-09-16 07:11] LABS: ANION GAP 14.8 (8-16); CARBON DIOXIDE 22.6 mmol/L (21-32); CHLORIDE 102 mmol/L (98-107); CREATININE 0.8 mg/dL (0.7-1.3); GLUCOSE 142 mg/dL (74-106); POTASSIUM 3.4 mmol/L (3.5-5.1); SODIUM SERUM 136 mmol/L (136-145); UREA NITROGEN, BLOOD 18 mg/dL (7-18)
--- NOTE | 2019-09-16 07:15 | NUR ---
ENDORSED PT IN STABLE CONDITION TO AM NURSE.
--- NOTE | 2019-09-16 07:36 | NUR ---
RECEIVED PT FROM BUILDING ARCHITECTURAL DESIGNER NURSE FOR CONTINUITY OF CARE. PT IN BED AWAKE AAOX2. MUMBLING INCOMPREHENSIBLE WORDS. NO DISTRESS NOTED. IV IN PLACE PATENT AND ASYMPTOMATIC INFUSING PER ORDER. SKIN INTACT. RESPIRATIONS EVEN AND UNLABORED ON ROOM AIR, CLEAR BREATH SOUNDS. BED IN LOW POSITION. SAFETY MEASURES IN PLACE. EXPLAINED POC TO PT BUT PT HAVING HARD TIME COMPREHENDING. CALL LIGHT WITHIN REACH. WILL MONITOR PT CLOSELY.
[2019-09-16] MEDS: NACL 0.45% 1,000 ML IV SCH (07:52)
[2019-09-16 08:00] VITALS: BP 132/63
--- NOTE | 2019-09-16 08:49 | NUR ---
ADMINISTERED MORNING MEDS TO PT. PT TOLERATED WELL. ALSO GAVE PT ZOFRAN FOR SIGNS OF N/V. WHEN ASKED, PT VERBALIZED THAT HE DOES HAVE NAUSEA. MRSA TX GIVEN. PT TOLERATED WELL. ALL OTHER NEEDS MET. WILL CONTINUE TO ROUND FREQUENTLY ON PT. BED IN LOW POSITION, CALL LIGHT WITHIN REACH.
[2019-09-16] MEDS ORDERED: CHLORHEXADINE GLUC 2% CLOTH TP SCH (09:00)
[2019-09-16] MEDS ORDERED: MUPIROCIN CA NASAL 2% 1GM TUBE NS SCH (09:00)
[2019-09-16] MEDS: TAMSULOSIN 0.4 MG CAP PO SCH (09:10)
[2019-09-16] MEDS: ENOXAPARIN 40 MG/0.4 ML SYR SUBQ SCH (09:11)
--- NOTE | 2019-09-16 11:11 | NUR ---
PT SLEEPING IN BED. ALL NEEDS MET. WILL CONTINUE TO ROUND FREQUENTLY ON PT. BED IN LOW POSITION, CALL LIGHT WITHIN REACH.
[2019-09-16 12:00] VITALS: BP 132/66
[2019-09-16] MEDS: HYDROcodone/APAP 5/325 MG 1 TAB TAB PO PRN ×2 (12:00→16:33)
--- NOTE | 2019-09-16 12:11 | NUR ---
DISCHARGE PLANNING: RECEIVED AN ORDER FOR HOME HEALTH FOR PT, SAFETY EVAL AND CAMPUZANO CARE. ORDER FAXED TO [facility]. MET WITH PATIENT'S SON GUILHERME GARDNER JR. AT THE BEDSIDE TO DISCUSS DC PLANNING TO HOME WITH HOME HEALTH. HE IS AGREEABLE. CONTACTED [facility] , PER KARLA THEY ARE ABLE TO ACCEPT THE PATIENT PENDING AUTH. PATIENT'S SON MADE AWARE. CONTACTED [facility], PROVIDED ME AUTH FOR H/H [id number]. Addendum: 09/19/19 at 0915 by Grecia Quarles CM PER JOSSE OF [facility], PATIENT HAS MEDICARE PART B AND NO NEED FOR AUTH FOR UROLOGY Rina MATHIS FOLLOW UP AND HOME HEALTH. CONTACTED DR. RINA MATHIS'S OFFICE AT [phone] REGARDING POST DISCHARGE APPOINTMENT, ABLE TO SPEAK TO [facility]. SHE PROVIDED ME WITH FAX NUMBER [phone] TO SEND REFERRAL. REFERRAL SENT. Addendum: 09/19/19 at 1021 by Grecia Quarles CM CONTACTED RINA MATHIS' OFFICE AGAIN, PER SHAWNEE SHE WILL BE THE ONE CALLING THE PATIENT TO SET UP APPOINTMENT. SHE ALSO STATED THAT IT WILL BE IN EARLY SEPTEMBER BECAUSE THE DOCTOR WILL BE OUT FOR 2 WEEKS. Addendum: 09/19/19 at 1026 by Grecia Quarles CM CONTACTED PATIENT'S SON GUILHERME GARDNER AT [phone] REGARDING THE APPOINTMENT AND THE CLINIC WILL BE CONTACTING HIM.
--- NOTE | 2019-09-16 13:32 | NUR ---
PT RESTING IN BED. ALL NEEDS MET. WILL CONTINUE TO ROUND FREQUENTLY ON PT.
--- NOTE | 2019-09-16 15:48 | NUR ---
PT SLEEPING. NO SIGNS OF PAIN OR DISTRESS. WILL CONTINUE TO ROUND FREQUENTLY ON PT. BED IN LOW POSITION, CALL LIGHT WITHIN REACH.
[2019-09-16] MEDS ORDERED: POTASSIUM CHLORIDE 10 MEQ TABER PO SCH (16:00)
--- NOTE | 2019-09-16 18:16 | NUR ---
PT DISCHARGED HOME WITH HOME HEALTH. ALL DISCHARGE TEACHING DONE WITH SON PRESENT. TOLD HIM IMPORTANT TO FOLLOWUP WITH PCP WITHIN 1 WEEK AND UROLOGY WITHIN 2 WKS. SON VERBALIZED UNDERSTANDING. ALSO GAVE PRESCRIPTION TO SON AND EXPLAINED IMPORTANCE OF ABX THERAPY AND FINISHING ALL OF MED. PT LEFT WITH CAMPUZANO IN PLACE PER 'S ORDERS. PT IV REMOVED WITH TIP INTACT. WRIST BAND REMOVED AND PLACED IN SHRED BIN. GAVE TEACHING TO SON ON DRAINING CAMPUZANO AND HOW TO CLEAN AND CARE FOR IT. TELE MONITOR REMOVED AND PLACED IN PROPER BIN. ALL PERSONAL BELONGINGS TAKEN WITH PT. PT LEFT IN STABLE CONDITION WITH SON.
== END 2019-09-16 18:00 | disposition home health service (06) | DRG 463 ==
LOC: MED 13:14 → INTOOBSV 17:02 → MTU 17:02 → OBSVTOIN 09-15 08:25
PROVIDERS: ADMIT Internal Medicine; ATTEND Internal Medicine
DX: N39.0 Urinary tract infection, site not specified (principal); E86.0 Dehydration; E11.9 Type 2 diabetes mellitus without complications; N40.0 Benign prostatic hyperplasia without lower urinary tract symptoms; R41.0 Disorientation, unspecified; M19.90 Unspecified osteoarthritis, unspecified site; K21.9 Gastro-esophageal reflux disease without esophagitis; I10 Essential (primary) hypertension; R32 Unspecified urinary incontinence; F17.200 Nicotine dependence, unspecified, uncomplicated; M10.9 Gout, unspecified; R05 Cough; M79.10 Myalgia, unspecified site; H57.89 Other specified disorders of eye and adnexa; Z79.899 Other long term (current) drug therapy; Z79.84 Long term (current) use of oral hypoglycemic drugs; Z79.4 Long term (current) use of insulin
CPT/HCPCS: 96361; 96374; 99218; 99285; G0378; 36415; 71045; 80048; 80053; 81001; 83605; 83880; 84484; 85025; 87040; 87081; 87086; 93005; 97110; 97530; C1758; J0696; J1650; J1885; J2405; J7030; J7060; Q0092

== ENCOUNTER 2019-09-18 16:59 | Emergency (ER) | payer MEDICARE, OTHER ==
[~2019-09-18] VITALS: Ht 172.7 cm; Wt 83.9 kg
[~2019-09-18 16:59] MED LIST changes: -ASPI81EC98 PO; -LEVO500T2 PO; -ZOLP5TAB1 PO
[2019-09-18 17:08] VITALS: BP 131/66
--- NOTE | 2019-09-18 17:15 | NUR ---
BIB SON FOR PAIN AND LEAKAGE AROUND CAMPUZANO CATH TUBING. SON SAY HIS FATHER MAY HAVE PULLED ON TUBING ACCIDENTALLY.
[2019-09-18] MEDS ORDERED: LIDOCAINE VISCOUS 2% 20 ML UDC PO ONE (17:25)
--- NOTE | 2019-09-18 18:00 | NUR ---
REMOVAL OF 16FR FC AND REEINSERTION OF 18FR FC (PER ERMD REQUEST) UNEVENTFUL. PT JAYLIN CASTELAN. SON AGREES WITH DC PLAN.
--- NOTE | 2019-09-18 19:10 | NUR ---
VERB UNDESTANDING OF ACI.
== END 2019-09-18 18:21 | disposition home or self-care (01) ==
LOC: MED 16:59
DX: T83.018A Breakdown (mechanical) of other urinary catheter, initial encounter (principal); E11.9 Type 2 diabetes mellitus without complications; K21.9 Gastro-esophageal reflux disease without esophagitis; I10 Essential (primary) hypertension; Z79.899 Other long term (current) drug therapy; Y84.6 Urinary catheterization as the cause of abnormal reaction of the patient, or of later complication, without mention of misadventure at the time of the procedure
CPT/HCPCS: 51702; 99284

== ENCOUNTER 2020-03-03 19:49 | Emergency (ER) | payer MEDICARE, OTHER ==
[~2020-03-03] VITALS: Ht 172.7 cm; Wt 74.8 kg
[2020-03-03 19:55] VITALS: BP 138/60
--- NOTE | 2020-03-03 19:58 | NUR ---
PT AMBULATED TO CHAIR C
--- NOTE | 2020-03-03 20:02 | NUR ---
KATHRYN LINARES EVALUATING PT.
--- NOTE | 2020-03-03 20:02 | NUR ---
Deepa townsend in [facility] - 03/03/[address] VIJAY VASQUEZ PT
--- NOTE | 2020-03-03 20:02 | NUR ---
DR. VIJAY VASQUEZ PT
[2020-03-03 20:04] VITALS: BP 138/60
--- NOTE | 2020-03-03 20:05 | NUR ---
79M PRESENTS TO ED WITH SON WITH C/O RT LEG PAIN X1 DAY. PER PT STATEMENT, " MY BONE HURTS ALL OVER." ROM BLE 5/5 WITH STRENGTH 5/5. PT DENIES SOB/COUGH. DENIES N/V/D. PT LAYING DOWN IN BED. BED LOWEST AND LOCKED. MEDHX- HTN, GOUT, DM, ARTHRITIS NKA
--- NOTE | 2020-03-03 20:17 | NUR ---
PT TAKEN TO XRAY VIA W/C
[2020-03-03] MEDS ORDERED: HYDROcodone/APAP 5/325 MG 1 TAB TAB PO ONE (20:40)
== END 2020-03-03 21:05 | disposition home or self-care (01) ==
LOC: MED 19:49
DX: M13.851 Other specified arthritis, right hip (principal); E11.9 Type 2 diabetes mellitus without complications; K21.9 Gastro-esophageal reflux disease without esophagitis; I10 Essential (primary) hypertension; Z79.899 Other long term (current) drug therapy
CPT/HCPCS: 73502; 99283

== ENCOUNTER 2020-04-08 14:53 | Emergency (ER) | payer MEDICARE, OTHER ==
[~2020-04-08] VITALS: Ht 172.7 cm; Wt 74.8 kg
[2020-04-08 14:57] VITALS: BP 120/61
--- NOTE | 2020-04-08 15:08 | NUR ---
C/O EDINSON EAR & RIGHT EYE PAIN X YESTERDAY. BLOOD SUGAR 136 AT THIS TIME. MED HX: DM, ARTHRITIS, GOUT
[2020-04-08 16:00] VITALS: BP 120/61
--- NOTE | 2020-04-08 16:00 | NUR ---
Patient discharged with v/s stable. Written and verbal after care instructions given and explained. Patient alert, oriented and verbalized understanding of instructions. Ambulatory with steady gait. All questions addressed prior to discharge. ID band removed. Patient advised to follow up with PMD. Rx of OFLOXACIN &NAPHCON given. Patient educated on indication of medication including possible reaction and side effects. Opportunity to ask questions provided and answered.
== END 2020-04-08 16:00 | disposition home or self-care (01) ==
LOC: MED 14:53
DX: H60.93 Unspecified otitis externa, bilateral (principal); H10.9 Unspecified conjunctivitis; K21.9 Gastro-esophageal reflux disease without esophagitis; I10 Essential (primary) hypertension; F03.90 Unspecified dementia, unspecified severity, without behavioral disturbance, psychotic disturbance, mood disturbance, and anxiety; Z79.899 Other long term (current) drug therapy; Z98.890 Other specified postprocedural states
CPT/HCPCS: 82948; 99283

== ENCOUNTER 2020-05-01 15:10 | Emergency (ER) | payer MEDICARE, OTHER ==
[~2020-05-01] VITALS: Ht 162.6 cm; Wt 83.9 kg
[2020-05-01 15:15] VITALS: BP 124/55
[2020-05-01 16:25] LABS: BASOPHILS % (AUTO) 0.9 % (0.0-2.0); EOSINOPHILS # (AUTO) 0.3 K/uL (0-0.4); EOSINOPHILS % (AUTO) 4.9 % (0.0-4.0); HEMATOCRIT 36.9 % (36-52); HEMOGLOBIN 12.1 g/dL (12.0-18.0); LYMPHOCYTES # (AUTO) 1.6 K/uL (2.0-11.5); LYMPHOCYTES % (AUTO) 31.3 % (20.5-51.1); MEAN CORPUSCULAR HEMOGLOBIN 29 pg (27-31); MEAN CORPUSCULAR HGB CONC 33 g/dL (33-37); MEAN CORPUSCULAR VOLUME 89.3 fL (80-94); MONOCYTES # (AUTO) 0.5 K/uL (0.8-1.0); MONOCYTES % (AUTO) 9.4 % (1.7-9.3); NEUTROPHILS # (AUTO) 2.8 K/uL (1.8-7.7); NEUTROPHILS % (AUTO) 53.5 % (42.2-75.2); PLATELET COUNT (AUTO) 311 K/uL (140-450); RED BLOOD CELL COUNT(AUTO) 4.13 MIL/uL (4.20-6.10); WHITE BLOOD COUNT (AUTO) 5.2 K/uL (4.8-10.8)
[2020-05-01 16:48] LABS: ALBUMIN 3.6 g/dL (3.4-5.0); ANION GAP 12.2 (8-16); ASPARTATE AMINOTRANSFERASE 16 U/L (15-37); CARBON DIOXIDE 26.6 mmol/L (21-32); CHLORIDE 98 mmol/L (98-107); CREATININE 1.1 mg/dL (0.6-1.3); GLUCOSE 110 mg/dL (74-106); POTASSIUM 3.8 mmol/L (3.5-5.1); SODIUM SERUM 133 mmol/L (136-145); TOTAL BILIRUBIN 0.3 mg/dL (0.0-1.0); UREA NITROGEN, BLOOD 12 mg/dL (7-18)
[2020-05-01 17:16] VITALS: BP 133/54
== END 2020-05-01 17:14 | disposition home or self-care (01) ==
LOC: MED 15:10
DX: K59.00 Constipation, unspecified (principal); E11.9 Type 2 diabetes mellitus without complications; K21.9 Gastro-esophageal reflux disease without esophagitis; F03.90 Unspecified dementia, unspecified severity, without behavioral disturbance, psychotic disturbance, mood disturbance, and anxiety; I10 Essential (primary) hypertension; Z98.890 Other specified postprocedural states; Z79.899 Other long term (current) drug therapy
CPT/HCPCS: 36415; 80053; 85025; 99284

== ENCOUNTER 2020-08-08 15:58 | Emergency (ER) | payer MEDICARE, OTHER ==
[~2020-08-08] VITALS: Ht 172.7 cm; Wt 74.8 kg
[~2020-08-08 15:58] MED LIST changes: -AMLO10TA4 PO; +AMLO10TA89 PO
[2020-08-08 16:17] VITALS: BP 129/57
--- NOTE | 2020-08-08 16:30 | NUR ---
PATIENT PRESENTS TO ED WITH MULTIPLE AND CONFLICTING URINARY COMPLAINTS. INITIAL C/O INCREASED URINATION FOLLOWED BY C/O INABILITY TO VOID AT THIS TIME. MUCH OF THE HISTORY IS BEING PROVIDED BY PATIENTS SON WHO ALSO SAYS, "IT IS PAINFUL WHEN HE PEES" . PT STATES HE CAN NOT URINATE AT THIS TIME . DENIES N/V/D; SKIN IS PINK/WARM/DRY; AAOX4 WITH EVEN AND STEADY GAIT; LUNGS CLEAR BL; HR EVEN AND REGULAR; PT DENIES ANY FEVER, CP, SOB, OR COUGH AT THIS TIME; PATIENT STATES PAIN OF 0/10 AT THIS TIME; VSS; PATIENT POSITIONED FOR COMFORT; HOB ELEVATED; BEDRAILS UP X2; BED DOWN. ER MD MADE AWARE OF PT STATUS.
--- NOTE | 2020-08-08 17:16 | NUR ---
Patient being evaluated by Dr. Uribe at bedside.
[2020-08-08] MEDS ORDERED: SIMETHICONE 40 MG/0.6 ML PO ONE (17:20)
[2020-08-08 17:55] LABS: BASOPHILS # (AUTO) 0.1 K/uL (0.00-0.22); BASOPHILS % (AUTO) 0.8 % (0.0-2.0); EOSINOPHILS # (AUTO) 0.3 K/uL (0-0.4); EOSINOPHILS % (AUTO) 4.2 % (0.0-4.0); HEMATOCRIT 36.7 % (36-52); HEMOGLOBIN 12.4 g/dL (12.0-18.0); LYMPHOCYTES # (AUTO) 1.7 K/uL (2.0-11.5); LYMPHOCYTES % (AUTO) 25.1 % (20.5-51.1); MEAN CORPUSCULAR HEMOGLOBIN 30 pg (27-31); MEAN CORPUSCULAR HGB CONC 34 g/dL (33-37); MEAN CORPUSCULAR VOLUME 88.5 fL (80-94); MONOCYTES # (AUTO) 0.6 K/uL (0.8-1.0); MONOCYTES % (AUTO) 9.1 % (1.7-9.3); NEUTROPHILS # (AUTO) 4.1 K/uL (1.8-7.7); NEUTROPHILS % (AUTO) 60.8 % (42.2-75.2); PLATELET COUNT (AUTO) 231 K/uL (140-450); RED BLOOD CELL COUNT(AUTO) 4.15 MIL/uL (4.20-6.10); RED CELL DISTRIBUTION WIDTH 14.4 % (11.6-13.7); WHITE BLOOD COUNT (AUTO) 6.8 K/uL (4.8-10.8)
[2020-08-08 18:09] LABS: ALBUMIN 3.3 g/dL (3.4-5.0); AMYLASE 41 U/L (25-115); ASPARTATE AMINOTRANSFERASE 20 U/L (15-37); CARBON DIOXIDE 24.7 mmol/L (21-32); CHLORIDE 104 mmol/L (98-107); CREATININE 0.9 mg/dL (0.6-1.3); GLUCOSE 125 mg/dL (74-106); LIPASE 109 U/L (73-393); POTASSIUM 3.7 mmol/L (3.5-5.1); SODIUM SERUM 140 mmol/L (136-145); TOTAL BILIRUBIN 0.3 mg/dL (0.0-1.0); UREA NITROGEN, BLOOD 15 mg/dL (7-18)
[2020-08-08] MEDS ORDERED: MORPHINE SULFATE 2 MG/ML SYR IVP ONE (18:15)
[2020-08-08] MEDS ORDERED: cephALEXin 500 MG CAP PO ONE (19:05)
[2020-08-08] MEDS ORDERED: SULFAMETH/TRIMETH DS 800/160MG 1 TAB PO ONE (19:10)
--- NOTE | 2020-08-08 19:14 | NUR ---
RECIVED REPORT FROM HOMER BUTTS. TRANSFER OF CARE.
[2020-08-08 19:46] VITALS: BP 129/57
--- NOTE | 2020-08-08 19:46 | NUR ---
Patient discharged with v/s stable. Written and verbal after care instructions given and explained. Patient alert, oriented and verbalized understanding of instructions. WALKER Assisted with SLOW steady gait. All questions addressed prior to discharge. ID band removed. Patient advised to follow up with PMD. Rx of BACTRIM DS given. Patient educated on indication of medication including possible reaction and side effects. Opportunity to ask questions provided and answered.
== END 2020-08-08 19:46 | disposition home or self-care (01) ==
LOC: MED 15:58
DX: N39.0 Urinary tract infection, site not specified (principal); E11.9 Type 2 diabetes mellitus without complications; F03.90 Unspecified dementia, unspecified severity, without behavioral disturbance, psychotic disturbance, mood disturbance, and anxiety; K21.9 Gastro-esophageal reflux disease without esophagitis; Z79.899 Other long term (current) drug therapy
CPT/HCPCS: 36415; 74176; 80053; 81002; 82150; 83605; 83690; 85025; 87040; 96374; 99284; J2270

== ENCOUNTER 2020-11-18 14:58 | Emergency (ER) | payer MEDICARE, OTHER ==
[~2020-11-18] VITALS: Ht 172.7 cm; Wt 74.8 kg
[2020-11-18 15:13] VITALS: BP 122/59
--- NOTE | 2020-11-18 15:17 | NUR ---
pt w/c assited to room 7
[2020-11-18] MEDS ORDERED: NACL 0.9% 500 ML IV SCH (15:20)
--- NOTE | 2020-11-18 15:20 | NUR ---
80 Y/O MALE C/O LEFT LOWER BACK PAIN, LEFT HIP PAIN, LEFT KNEE AND LEFT FOOT PAIN X5 DAYS. PT ALSO STATES URINARY BURNING SENSATION X 4 DAYS. PT DENIES TRAUMA/INJURY. PT TAKES NORCO FOR PAIN AND SON STATED THAT THEY ARE OUT AND NEEDS REFILL. PT STATED HE IS CONSTIPATED WITH LBM 2-3 DAYS AGO. ON ASSESSMENT, LIMITED ROM OF LEFT HIP, AND STATES PAIN IS 10/10 AND IS WORSE WHEN WALKING. PT USES A WALKER TO AMBULATE. ABD IS ROUND/FIRM/ NONTENDER WITH ACTIVE BOWEL SOUNDS IN ALL 4 QUADRANTS. PT DENIES N/V/FEVER/SOB.PT IS A/O X2- TO NAME AND SITUATION. PT SON/CAREGIVER AT BEDSIDE. PMH: L HIP SURGERY 3 YEARS AGO, DM, HTN, GOUT, ARTHRITIS NKA
--- NOTE | 2020-11-18 15:23 | NUR ---
DR REED AT BEDSIDE
--- NOTE | 2020-11-18 15:28 | NUR ---
LAB AT BEDSIDE
--- NOTE | 2020-11-18 15:47 | NUR ---
Xray at bedside
[2020-11-18 16:01] LABS: BASOPHILS % (AUTO) 0.6 % (0.0-2.0); EOSINOPHILS # (AUTO) 0.2 K/uL (0-0.4); EOSINOPHILS % (AUTO) 3.2 % (0.0-4.0); HEMOGLOBIN 11.8 g/dL (12.0-18.0); LYMPHOCYTES # (AUTO) 1.9 K/uL (2.0-11.5); LYMPHOCYTES % (AUTO) 26.6 % (20.5-51.1); MEAN CORPUSCULAR HEMOGLOBIN 30 pg (27-31); MEAN CORPUSCULAR HGB CONC 34 g/dL (33-37); MEAN CORPUSCULAR VOLUME 87.7 fL (80-94); MONOCYTES # (AUTO) 0.5 K/uL (0.8-1.0); MONOCYTES % (AUTO) 7.2 % (1.7-9.3); NEUTROPHILS # (AUTO) 4.4 K/uL (1.8-7.7); NEUTROPHILS % (AUTO) 62.4 % (42.2-75.2); PLATELET COUNT (AUTO) 380 K/uL (140-450); RED BLOOD CELL COUNT(AUTO) 3.99 MIL/uL (4.20-6.10); RED CELL DISTRIBUTION WIDTH 13.6 % (11.6-13.7)
--- NOTE | 2020-11-18 16:12 | NUR ---
KALIA AGEE AT BEDSIDE FOR EKG
--- NOTE | 2020-11-18 16:22 | NUR ---
PT TAKEN TO CT VIA JACK
[2020-11-18 16:23] LABS: ALBUMIN 3.1 g/dL (3.4-5.0); ANION GAP 11.1 (8-16); ASPARTATE AMINOTRANSFERASE 13 U/L (15-37); CARBON DIOXIDE 27.2 mmol/L (21-32); CHLORIDE 104 mmol/L (98-107); GLUCOSE 111 mg/dL (74-106); POTASSIUM 3.3 mmol/L (3.5-5.1); SODIUM SERUM 139 mmol/L (136-145); TOTAL BILIRUBIN 0.2 mg/dL (0.0-1.0); UREA NITROGEN, BLOOD 15 mg/dL (7-18)
[2020-11-18 16:31] LABS: PROTHROMBIN TIME 10.1 secs (10.8-13.4)
[2020-11-18] MEDS ORDERED: MORPHINE SULFATE 2 MG/ML SYR IVP ONE (17:10)
--- NOTE | 2020-11-18 17:25 | NUR ---
SPOKE WITH PT SON, GUILHERME AND GAVE AN UPDATE. CAN BE REACHED AT [phone] FOR FURTHER UPDATES
[2020-11-18 17:49] LABS: APPEARANCE,URINE CLOUDY (CLEAR); BILIRUBIN,URINE NEGATIVE (NEGATIVE); BLOOD, URINE 2+ (NEGATIVE); COLOR,URINE YELLOW (YELLOW); LEUKOCYTE ESTERASE ,URINE 2+ (NEGATIVE); NITRITE, URINE POSITIVE (NEGATIVE); PH,URINE 6.5 (5.0-9.0); UGLUCOSE NEGATIVE (NEGATIVE)
--- NOTE | 2020-11-18 17:53 | NUR ---
PT IS LAYING IN BED WITH EVEN AND UNLABORED RESPIRATIONS OBSERVED. PT PROVIDED WITH BLANKET AND SOCKS FOR COMFORT. VSS. WILL CONTINUE TO MONITOR
[2020-11-18 17:59] LABS: WBC,URINE TOO MANY TO COUNT /HPF (0-5)
[2020-11-18] MEDS ORDERED: cefTRIAXone 1,000 MG VIAL ONE (18:12)
[2020-11-18 19:10] VITALS: BP 105/63
--- NOTE | 2020-11-18 19:10 | NUR ---
Patient discharged with v/s stable. Written and verbal after care instructions given and explained. Patient alert, oriented and verbalized understanding of instructions. Pt wheelchair assisted to car. All questions addressed prior to discharge. ID band removed. Patient advised to follow up with PMD. Rx of Doxycycline 100mg and [place] 5mg was given. Patient educated on indication of medication including possible reaction and side effects. Opportunity to ask questions provided and answered.
--- NOTE | 2020-11-21 13:02 | NUR ---
Called patient for follow up regarding dysuria per Dr Phan's request. Pt states he is relieved of symptoms.
== END 2020-11-18 19:10 | disposition home or self-care (01) ==
LOC: MED 14:58
DX: N39.0 Urinary tract infection, site not specified (principal); G89.29 Other chronic pain; M25.552 Pain in left hip; E11.9 Type 2 diabetes mellitus without complications; F03.90 Unspecified dementia, unspecified severity, without behavioral disturbance, psychotic disturbance, mood disturbance, and anxiety; K21.9 Gastro-esophageal reflux disease without esophagitis; I10 Essential (primary) hypertension; Z79.899 Other long term (current) drug therapy
CPT/HCPCS: 36415; 71045; 74176; 80053; 81001; 83605; 83880; 84484; 85025; 85610; 85730; 87040; 87086; 93005; 96365; 96375; 99285; C1758; J0696; J2270; J7030; J7060; 87186